=== PATIENT | male | born 2000 ===

== ENCOUNTER 2021-01-31 21:25 | Emergency (ER) | payer OTHER ==
[~2021-01-31] VITALS: Ht 180.3 cm; Wt 84.8 kg
[2021-01-31 21:28] VITALS: BP 144/70
== END 2021-02-01 01:31 | disposition left against medical advice (07) ==
LOC: ED 22:00
DX: R06.02 Shortness of breath (principal); R05 Cough; J45.909 Unspecified asthma, uncomplicated
CPT/HCPCS: 71045; 99283